=== PATIENT | female | born 1995 | race Caucasian/White ===

== ENCOUNTER 2020-05-29 21:08 | Emergency (ER) | payer OTHER ==
[~2020-05-29] VITALS: Ht 157.5 cm; Wt 60.5 kg
[2020-05-29] MEDS ORDERED: CEPH-582 PO (21:19)
[2020-05-29 23:21] VITALS: BP 124/61
== END 2020-05-29 23:25 | disposition home or self-care (01) ==
LOC: EMS 21:18
DX: L08.9 Local infection of the skin and subcutaneous tissue, unspecified (principal); L81.8 Other specified disorders of pigmentation